=== PATIENT | male | born 1985 | race Caucasian/White ===

== ENCOUNTER 2017-07-10 09:25 | Emergency (ER) | payer MEDICAID ==
[~2017-07-10] VITALS: Ht 167.6 cm; Wt 93.7 kg
[2017-07-10 09:35] VITALS: BP 147/96
[2017-07-10] MEDS ORDERED: METHOCARBAMOL 750 MG TABLET PO ONE (10:00)
[2017-07-10] MEDS ORDERED: KETOROLAC 30 MG/1 ML IM ONE (10:00)
[2017-07-10] MEDS ORDERED: KETOROLAC 30 MG/1 ML ONE (10:25)
[2017-07-10] MEDS ORDERED: METHOCARBAMOL 750 MG TABLET ONE (10:25)
[2017-07-10] MEDS ORDERED: APIX5TAB PO (10:36)
== END 2017-07-10 11:04 | disposition home or self-care (01) ==
LOC: ED 10:58
DX: M54.42 Lumbago with sciatica, left side (principal); F17.200 Nicotine dependence, unspecified, uncomplicated
CPT/HCPCS: 72110; 99284; J7512